=== PATIENT | female | born 1930 | race Caucasian/White ===

== ENCOUNTER 2016-08-15 03:02 | Emergency (ER) | payer MEDICARE ==
[~2016-08-15] VITALS: Ht 160 cm; Wt 47.2 kg
[~2016-08-15 03:02] MED LIST: PERCOCET 325 MG1 TA2 PO
[2016-08-15] MEDS ORDERED: CALCIUM CITRATE1 TA7 PO (03:29)
[2016-08-15] MEDS ORDERED: Synthroid,Lev100 MCG PO (03:30)
[2016-08-15] MEDS ORDERED: KEFLEX500 M1 PO (03:30)
[2016-08-15] MEDS ORDERED: VITAMIN D31000 IU PO (03:31)
[2016-08-15] MEDS ORDERED: VITAMIN B-650 M1 PO (03:31)
[2016-08-15] MEDS ORDERED: TENORMIN50 MG PO (03:31)
[2016-08-15] MEDS ORDERED: VITAMIN B12-FO1 EACH PO (03:32)
[2016-08-15] MEDS ORDERED: GLUCOSAMINE &1 EACH PO (03:32)
[2016-08-15] MEDS ORDERED: LATANOPROST2.5 ML OU (03:34)
[2016-08-15 03:48] LABS: BASO # 0.1 10*3/uL (0.0-0.1); BASO % 0.9 % (0.0-1.0); EOS # 0.1 10*3/uL (0.0-0.4); EOS % 1.7 % (1.0-4.0); HEMATOCRIT 37.1 % (37.0-47.0); HEMOGLOBIN 12.6 g/dl (12.0-16.0); LYMPH # 1.5 10*3/uL (1.3-4.4); LYMPH % 27.2 % (27.0-41.0); MEAN CELL VOLUME 88.1 fl (81.0-99.0); MEAN CORPUSCULAR HGB 29.9 pg (27.0-31.0); MEAN PLATELET VOLUME 8.3 fl (9.6-12.3); MONO # 0.4 10*3/uL (0.1-1.0); MONO % 6.7 % (3.0-9.0); NEUT # 3.4 10*3/uL (2.3-7.9); NEUT % 62.9 % (47.0-73.0); PLATELET COUNT AUTOMATED 214 10*3/uL (130-400); RED BLOOD COUNT 4.21 10*6/uL (4.10-5.10); RED CELL DISTRI WIDTH 11.9 % (0-14.5); WHITE BLOOD COUNT 5.4 10*3/uL (4.8-10.8)
[2016-08-15 03:56] LABS: PROTHROMBIN TIME 10.8 SECONDS (9.0-12.4)
[2016-08-15 04:03] LABS: ALBUMIN 3.2 gm/dl (3.1-4.5); ALKALINE PHOSPHATASE 70 U/L (45-117); BILIRUBIN, TOTAL 0.3 mg/dl (0.2-1.0); BUN 13 mg/dl (7-24); CARBON DIOXIDE 26 mmol/L (21-32); CHLORIDE 106 mmol/L (98-107); EST GLOM FILT AFRICAN AMERICAN > 60 ml/min; GLUCOSE 119 mg/dL (65-99); POTASSIUM 3.6 mmol/L (3.5-5.1); SGOT/AST 20 IU/L (3-35); SGPT/ALT 18 U/L (12-78); SODIUM 143 mmol/L (136-145); TOTAL PROTEIN 7.6 gm/dL (6.4-8.2)
[2016-08-15 04:18] LABS: BILIRUBIN NEGATIVE (NEGATIVE); BLOOD 3+ (NEGATIVE); CLARITY CLEAR (CLEAR); COLOR YELLOW (YELLOW); GLUCOSE NEGATIVE (NEGATIVE); KETONE NEGATIVE (NEGATIVE); LEUKO ESTERASE 1+ (NEGATIVE); NITRITE NEGATIVE (NEGATIVE); PROTEIN NEGATIVE (NEGATIVE); UROBILINOGEN 0.2 E.U./dl (0.2-1.0)
[2016-08-15 04:24] LABS: RBC 16-20 rbc/hpf (0-2); URINE REFLEX COMMENT YES (NO)
[2016-08-15 04:25] LABS: BACTERIA TRACE
[2016-08-15] MEDS ORDERED: ANUSOL-HC25 MG R (04:55)
== END 2016-08-15 05:24 | disposition home or self-care (01) ==
LOC: ED 03:02
PROVIDERS: Emergency Medicine
DX: K64.4 Residual hemorrhoidal skin tags (principal); Z79.899 Other long term (current) drug therapy; Z88.2 Allergy status to sulfonamides

== ENCOUNTER 2018-10-19 14:51 | Inpatient (IN) | payer OTHER, MEDICARE ==
[~2018-10-19] VITALS: Ht 160 cm; Wt 51.9 kg
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
--- NOTE | ~2018-10-19 | EKG ---
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
[2018-10-19 14:51] VITALS: BP 190/97
[~2018-10-19 14:51] MED LIST changes: +ANUSOL-HC25 MG R; +CALCIUM CITRATE1 TA7 PO; +GLUCOSAMINE &1 EACH PO; +KEFLEX500 M1 PO; +LATANOPROST2.5 ML OU; +Synthroid,Lev100 MCG PO; +TENORMIN50 MG PO; +VITAMIN B-650 M1 PO; +VITAMIN B12-FO1 EACH PO; +VITAMIN D32000 UNIT PO
[2018-10-19 15:43] VITALS: BP 178/103
[2018-10-19 17:00] VITALS: BP 172/98
[2018-10-19] MEDS ORDERED: MULTI-VITAMIN1 EACH PO (17:24)
[2018-10-19] MEDS ORDERED: LOPRESSOR50 M1 PO (17:25)
[2018-10-19 17:39] VITALS: BP 174/100
[2018-10-19 17:43] LABS: BASO % 0.5 % (0.0-1.0); EOS % 0.4 % (1.0-4.0); HEMOGLOBIN 13.3 g/dl (12.0-16.0); LYMPH # 1.2 10*3/uL (1.3-4.4); LYMPH % 14.9 % (27.0-41.0); MEAN CELL VOLUME 90.1 fl (81.0-99.0); MEAN CORPUSCULAR HGB 30.7 pg (27.0-31.0); MEAN CORPUSCULAR HGB CONC 34.1 g/dl (33.0-37.0); MEAN PLATELET VOLUME 8.5 fl (9.6-12.3); MONO # 0.5 10*3/uL (0.1-1.0); MONO % 5.9 % (3.0-9.0); NEUT # 6.1 10*3/uL (2.3-7.9); NEUT % 77.9 % (47.0-73.0); PLATELET COUNT AUTOMATED 107 10*3/uL (130-400); RED BLOOD COUNT 4.33 10*6/uL (4.10-5.10); RED CELL DISTRI WIDTH 12.7 % (0-14.5); WHITE BLOOD COUNT 7.8 10*3/uL (4.8-10.8)
[2018-10-19 17:56] LABS: ACT PARTIAL THROMBO TIME 26.5 SECONDS (20.0-32.1)
[2018-10-19 17:59] LABS: ALBUMIN 3.6 gm/dl (3.1-4.5); ALKALINE PHOSPHATASE 85 U/L (45-117); BUN 18 mg/dl (7-24); CHLORIDE 106 mmol/L (98-107); CREATININE 0.89 mg/dL (0.55-1.02); POTASSIUM 3.6 mmol/L (3.5-5.1); SGOT/AST 19 IU/L (3-35); SGPT/ALT 17 U/L (12-78); SODIUM 137 mmol/L (136-145); TOTAL PROTEIN 7.6 gm/dL (6.4-8.2)
[2018-10-20] VITALS (9 sets, daily range): BP systolic 95–155; BP diastolic 58–94
[2018-10-20 06:02] LABS: ALBUMIN 3.4 gm/dl (3.1-4.5); BUN 12 mg/dl (7-24); CHLORIDE 107 mmol/L (98-107); POTASSIUM 3.5 mmol/L (3.5-5.1); SGOT/AST 18 IU/L (3-35); SODIUM 138 mmol/L (136-145)
[2018-10-20 06:07] LABS: BASO % 0.4 % (0.0-1.0); EOS # 0.1 10*3/uL (0.0-0.4); EOS % 1.1 % (1.0-4.0); HEMATOCRIT 37.7 % (37.0-47.0); HEMOGLOBIN 12.7 g/dl (12.0-16.0); LYMPH # 1.7 10*3/uL (1.3-4.4); LYMPH % 24.9 % (27.0-41.0); MEAN CELL VOLUME 90.8 fl (81.0-99.0); MEAN CORPUSCULAR HGB 30.6 pg (27.0-31.0); MEAN CORPUSCULAR HGB CONC 33.7 g/dl (33.0-37.0); MONO # 0.6 10*3/uL (0.1-1.0); MONO % 8.9 % (3.0-9.0); NEUT # 4.5 10*3/uL (2.3-7.9); NEUT % 64.4 % (47.0-73.0); PLATELET COUNT AUTOMATED 113 10*3/uL (130-400); RED BLOOD COUNT 4.15 10*6/uL (4.10-5.10); RED CELL DISTRI WIDTH 12.7 % (0-14.5)
[2018-10-20 06:14] LABS: ALKALINE PHOSPHATASE 74 U/L (45-117); CHOLESTEROL 148 mg/dL (<200); CREATININE 0.74 mg/dL (0.55-1.02); HDL CHOLESTEROL 34 mg/dl (40-60); LDL CHOLESTEROL 90 mg/dL (9-159); PHOSPHOROUS 2.6 mg/dL (2.5-4.9); SGPT/ALT 15 U/L (12-78); THYROID STIM HORMONE (HS) 0.219 uIU/ml (0.358-4.75); TRIGLYCERIDES 119 mg/dl (<150); VLDL CHOLESTEROL 24 mg/dL (6-40)
[2018-10-20 07:21] LABS: VITAMIN D, 25-HYDROXY 57.3 ng/mL (30-100)
[2018-10-21] VITALS: BP 118/63
[2018-10-21 06:28] LABS: BASO % 0.2 % (0.0-1.0); EOS % 0.2 % (1.0-4.0); HEMATOCRIT 30.3 % (37.0-47.0); HEMOGLOBIN 10.1 g/dl (12.0-16.0); LYMPH # 1.6 10*3/uL (1.3-4.4); LYMPH % 18.9 % (27.0-41.0); MEAN CELL VOLUME 91.3 fl (81.0-99.0); MEAN CORPUSCULAR HGB 30.4 pg (27.0-31.0); MEAN CORPUSCULAR HGB CONC 33.3 g/dl (33.0-37.0); MEAN PLATELET VOLUME 9.1 fl (9.6-12.3); MONO # 0.8 10*3/uL (0.1-1.0); MONO % 9.8 % (3.0-9.0); NEUT # 5.8 10*3/uL (2.3-7.9); NEUT % 70.5 % (47.0-73.0); PLATELET COUNT AUTOMATED 88 10*3/uL (130-400); RED BLOOD COUNT 3.32 10*6/uL (4.10-5.10); RED CELL DISTRI WIDTH 13.1 % (0-14.5); WHITE BLOOD COUNT 8.2 10*3/uL (4.8-10.8)
[2018-10-21 08:32] VITALS: BP 145/74
[2018-10-21] MEDS ORDERED: HYDROCODONE-AC1 EAC1 PO (11:35)
== END 2018-10-21 13:18 | disposition home health service (06) | DRG 511 ==
LOC: ED 14:51 → 4E 16:40 → EDHOLD 16:40 → 4E 16:53
PROVIDERS: Orthopaedic Surgery; Physician Assistant; Student in an Organized Health Care Education/Training Program; ADMIT Internal Medicine
DX: S52.251A Displaced comminuted fracture of shaft of ulna, right arm, initial encounter for closed fracture (principal); R65.10 Systemic inflammatory response syndrome (SIRS) of non-infectious origin without acute organ dysfunction; S52.91XA Unspecified fracture of right forearm, initial encounter for closed fracture; E55.9 Vitamin D deficiency, unspecified; D64.9 Anemia, unspecified; I10 Essential (primary) hypertension; E89.0 Postprocedural hypothyroidism; R73.9 Hyperglycemia, unspecified; R20.0 Anesthesia of skin; D69.6 Thrombocytopenia, unspecified; V49.88XA Car occupant (driver) (passenger) injured in other specified transport accidents, initial encounter; Y93.89 Activity, other specified; Y92.481 Parking lot as the place of occurrence of the external cause; Y99.8 Other external cause status; Z88.2 Allergy status to sulfonamides; Z91.048 Other nonmedicinal substance allergy status; Z90.710 Acquired absence of both cervix and uterus; Z90.49 Acquired absence of other specified parts of digestive tract; Z82.3 Family history of stroke; Z88.6 Allergy status to analgesic agent; Z88.0 Allergy status to penicillin; Z79.890 Hormone replacement therapy; Z79.899 Other long term (current) drug therapy

== ENCOUNTER → 2018-11-18 | Outpatient (CLI) | payer OTHER, MEDICARE ==
[~2018-11-18] MED LIST changes: +HYDROCODONE-AC1 EAC1 PO; +LOPRESSOR50 M1 PO; +MULTI-VITAMIN1 EACH PO
== END | disposition home or self-care (01) ==
LOC: ORTHO 02:43
DX: S52.391D Other fracture of shaft of radius, right arm, subsequent encounter for closed fracture with routine healing (principal); S52.251D Displaced comminuted fracture of shaft of ulna, right arm, subsequent encounter for closed fracture with routine healing; X58.XXXD Exposure to other specified factors, subsequent encounter

== ENCOUNTER → 2018-12-09 | Outpatient (CLI) | payer OTHER, MEDICARE | END | disposition home or self-care (01) | LOC: ORTHO 02:14 | DX: S52.251D Displaced comminuted fracture of shaft of ulna, right arm, subsequent encounter for closed fracture with routine healing (principal); X58.XXXD Exposure to other specified factors, subsequent encounter ==

== ENCOUNTER → 2019-01-06 | Outpatient (CLI) | payer OTHER, MEDICARE | END | disposition home or self-care (01) | LOC: ORTHO 00:37 | DX: S52.251D Displaced comminuted fracture of shaft of ulna, right arm, subsequent encounter for closed fracture with routine healing (principal); S52.391D Other fracture of shaft of radius, right arm, subsequent encounter for closed fracture with routine healing; X58.XXXD Exposure to other specified factors, subsequent encounter ==

== ENCOUNTER → 2019-02-17 | Outpatient (CLI) | payer OTHER, MEDICARE | END | disposition home or self-care (01) | LOC: ORTHO 00:11 | DX: S52.251D Displaced comminuted fracture of shaft of ulna, right arm, subsequent encounter for closed fracture with routine healing (principal); X58.XXXD Exposure to other specified factors, subsequent encounter ==

== ENCOUNTER 2020-11-03 10:28 | Emergency (ER) | payer MEDICARE ==
[~2020-11-03] VITALS: Ht 167.6 cm; Wt 49.9 kg
[2020-11-03 11:30] LABS: BASO % 0.5 % (0.0-1.0); EOS # 0.1 10*3/uL (0.0-0.4); EOS % 0.7 % (1.0-4.0); HEMATOCRIT 42.7 % (37.0-47.0); LYMPH # 2.4 10*3/uL (1.3-4.4); LYMPH % 28.9 % (27.0-41.0); MEAN CELL VOLUME 92.4 fl (81.0-99.0); MEAN CORPUSCULAR HGB 30.7 pg (27.0-31.0); MEAN CORPUSCULAR HGB CONC 33.3 g/dl (33.0-37.0); MEAN PLATELET VOLUME 8.9 fl (9.6-12.3); MONO # 0.9 10*3/uL (0.1-1.0); MONO % 10.7 % (3.0-9.0); PLATELET COUNT AUTOMATED 166 10*3/uL (130-400); RED BLOOD COUNT 4.62 10*6/uL (4.10-5.10); RED CELL DISTRI WIDTH 12.8 % (0-14.5); WHITE BLOOD COUNT 8.4 10*3/uL (4.8-10.8)
[2020-11-03 11:46] LABS: ALBUMIN 3.9 gm/dl (3.1-4.5); CREATININE 1.31 mg/dL (0.55-1.02); POTASSIUM 3.3 mmol/L (3.5-5.1); TOTAL PROTEIN 8.2 gm/dL (6.4-8.2)
[2020-11-03] MEDS ORDERED: ZOFRAN4 MG PO (13:11)
== END 2020-11-03 13:16 | disposition home or self-care (01) ==
LOC: ED 10:28
PROVIDERS: Internal Medicine
DX: K52.9 Noninfective gastroenteritis and colitis, unspecified (principal); E86.0 Dehydration; Z88.0 Allergy status to penicillin; Z88.2 Allergy status to sulfonamides; Z88.6 Allergy status to analgesic agent; Z79.899 Other long term (current) drug therapy